=== PATIENT | female | born 1945 | race Caucasian/White ===

== ENCOUNTER 2019-06-27 17:22 | Emergency (ER) | payer OTHER ==
[2019-06-27 17:32] VITALS: TEMP 98.1; BMI 22.3
[2019-06-27] MEDS ORDERED: SODIUM CHLORIDE 0.9% 500 ML INFUS.BAG IV ONE (22:00)
[2019-06-27] MEDS ORDERED: ONDANSETRON 4 MG/2 ML VIAL IVPUSH ONE (22:00)
[2019-06-27] MEDS ORDERED: ONDANSETRON 4 MG/2 ML VIAL ONE (22:07)
--- NOTE | 2019-06-27 22:09 | PDOC ---
History of Present Illness <LuisChelle Jennifer - Last Filed: 06/28/19 01:16> - History of Present Illness Initial Comments: 06/27/19 22:03 73y/o F hx of HTN, triple bypass surgery, [place] (x2), CVA x2 and exertational angina,presents to the ER with nausea and vomiting. She has had 7 episodes of non-bloody/non billious emesis today. She has had 2 admissions in the last month for same complaint. [facility] hyperkalemia and on her second admission at [facility] she had electrolyte imbalances as well and was counseled to stop taking metformn, stay on Januvia and follow up with her PCP. At her PCP's office this morning she was placed on insulin which she has not yet begun to take (of note did not see the doctor, message passed through nurse). She denies any abdominal pain, diarrhea, bloody stools, fevers, chills, flank pain, dysuria, hematuria, leg swelling/edema. She is currently experiencing 4/10 non-radiating chest pain. 06/27/19 22:10 <Hi Coto - Last Filed: 06/30/19 09:35> - General Chief Complaint: Blood Sugar Problem Stated Complaint: VOMITING, BLOOD SUGAR PROBLEM Time Seen by Provider: 06/27/19 21:25 Past History <LuisChelleterrie Rodriguez - Last Filed: 06/28/19 01:16> - Past Medical History COPD: No - Psycho Social/Smoking Cessation Hx Smoking History: Never smoked Information on smoking cessation initiated: No Hx Alcohol Use: No Drug/Substance Use Hx: No <Hi Coto - Last Filed: 06/30/19 09:35> - Past Medical History Allergies/Adverse Reactions: Allergies Allergy/AdvReac Type Severity Reaction Status Date / Time No Known Allergies Allergy Verified 06/27/19 17:31 Home Medications: Ambulatory Orders Aspirin [Aspirin EC] 81 mg PO DAILY 06/27/19 Atorvastatin Ca [Lipitor] 80 mg PO HS 06/27/19 Clopidogrel Bisulfate [Clopidogrel] 75 mg PO BID 06/27/19 Ferrous Gluconate [Iron] 256 mg PO DAILY 06/27/19 Isosorbide Mononitrate [Isosorbide Mononitrate ER] 30 mg PO DAILY 06/27/19 Metformin HCl [Metformin HCl ER] 500 mg PO TID 06/27/19 Metoprolol Tartrate [Lopressor -] 50 mg PO DAILY 06/27/19 Nitroglycerin 0.4 mg SL PRN PRN 06/27/19 Ranolazine [Ranolazine ER] 500 mg PO BID 06/27/19 Sitagliptin Phosphate [Januvia] 100 mg PO DAILY 06/27/19 Review of Systems - Review of Systems Constitutional: No: Chills, Fever HEENTM: No: Eye Pain, Blurred Vision Respiratory: No: Cough, Shortness of Breath Cardiac (ROS): Yes: Chest Pain. No: Edema ABD/GI: No: Abdominal Distended, Diarrhea : No: Burning, Dysuria Integumentary: No: Bruising, Change in Color Neurological: No: Headache, Numbness <Hi Coto - Last Filed: 06/30/19 09:35> *Physical Exam - Vital Signs Last Vital Signs Temp Pulse Resp BP Pulse Ox 98.1 F 55 L 17 138/60 98 06/27/19 17:28 06/27/19 17:28 06/27/19 17:28 06/27/19 17:28 06/27/19 17:28 <Chelle Smith - Last Filed: 06/28/19 01:16> - Vital Signs Last Vital Signs Temp Pulse Resp BP Pulse Ox 98.1 F 55 L 17 138/60 98 06/27/19 17:28 06/27/19 17:28 06/27/19 17:28 06/27/19 17:28 06/27/19 17:28 - Physical Exam Comments: 06/27/19 22:14 GENERAL: Awake, alert, and fully oriented, in no acute distress HEAD: No signs of trauma, normocephalic, atraumatic EYES: PERRLA, EOMI, sclera anicteric, conjunctiva clear ENT: Auricles normal inspection, hearing grossly normal, nares patent, oropharynx clear without exudates. Moist mucosa NECK: Normal ROM, supple, no lymphadenopathy, JVD, or masses LUNGS: No distress, speaks full sentences, inspiratory wheezin/rhonchi on exam. no accessory muscle use. HEART: Regular rate and rhythm, normal S1,louder s2, no murmurs, rubs or gallops , peripheral pulses normal and equal bilaterally. ABDOMEN: Soft, nontender, normoactive bowel sounds. No guarding, no rebound. No masses,no CVA tenderness EXTREMITIES : Normal inspection, Normal range of motion, no edema. No clubbing or cyanosis NEUROLOGICAL: Cranial nerves II through XII grossly intact. Normal speech, normal gait, no focal sensorimotor deficits SKIN: Warm, Dry, normal turgor, no rashes or lesions noted <Hi Coto - Last Filed: 06/30/19 09:35> ED Treatment Course - LABORATORY CBC & Chemistry Diagram: 06/27/19 22:18 06/27/19 22:18 - ADDITIONAL ORDERS Additional order review: Laboratory Results 06/27/19 06/27/19 22:18 21:52 Sodium 130 L Potassium 4.3 Chloride 97 L Carbon Dioxide 26 Anion Gap 8 BUN 14.4 Creatinine 1.1 Est GFR (CKD-EPI)AfAm 57.28 Est GFR (CKD-EPI)NonAf 49.42 POC Glucometer 172 Random Glucose 179 H Calcium 8.4 L Phosphorus 3.1 Magnesium 2.2 Total Bilirubin 0.4 AST 114 H ALT 105 H Alkaline Phosphatase 143 H Creatine Kinase 108 Troponin I 0.09 H Total Protein 7.4 Albumin 3.3 L 06/27/19 06/27/19 22:18 21:52 RBC 3.20 L MCV 83.4 MCHC 31.7 L RDW 14.5 MPV 10.5 Neutrophils % 60.7 Lymphocytes % 25.2 Monocytes % 9.8 Eosinophils % 3.1 Basophils % 1.2 POC Glucometer 172 - Medications Given in the ED: ED Medications Discontinued Medications Generic Name Dose Route Start Last Admin Trade Name Freq PRN Reason Stop Dose Admin Ondansetron HCl 4 mg 06/27/19 22:00 06/27/19 22:22 Zofran Injection IVPUSH 06/27/19 22:01 4 mg NOW ONE Administration Sodium Chloride 1,000 ml 06/27/19 22:00 06/27/19 22:22 Normal Saline - IV 06/27/19 22:01 1,000 ml ONCE ONE Administration <Chelle Smith - Last Filed: 06/28/19 01:16> - LABORATORY CBC & Chemistry Diagram: 06/27/19 22:18 06/27/19 22:18 - ADDITIONAL ORDERS Additional order review: Laboratory Results 06/27/19 21:52 POC Glucometer 172 06/27/19 21:52 POC Glucometer 172 <Hi Coto - Last Filed: 06/30/19 09:35> Medical Decision Making - Medical Decision Making 06/27/19 22:16 73y/o F hx of HTN, triple bypass surgery, IL (x2), CVA x2 and exertational angina,presents to the ER with nausea and vomiting. She has had 7 episodes of non-bloody/non billious emesis today. cbc,cmp, ekg, cardiac profile, mag, phosphorus, meds: 1L NS, zofran 4mg 06/27/19 22:35 EKG: normal sinus rhythm, left atrial enlargement, septal infarct age undetermined, no peaked T waves Trop elevated at 0.09. 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 Repeat trops sent to lab on 3 seperate occasions, but samples were reported by lab to have hemolyzed x3. In light of this pt. decided to leave AMA to follow up with her general road production manager. Importance of doing so was stressed to the patient. 06/30/19 09:30 <Hi Coto - Last Filed: 06/30/19 09:35> *DC/Admit/Observation/Transfer <LuisChelleterrie Rodriguez - Last Filed: 06/28/19 01:16> - Discharge Dispostion Decision to Admit order: No <Hi Coto - Last Filed: 06/30/19 09:35> Diagnosis at time of Disposition: Nausea & vomiting Qualifiers: Vomiting type: unspecified Vomiting Intractability: unspecified Qualified Code( s): R11.2 - Nausea with vomiting, unspecified Chest pain Qualifiers: Chest pain type: unspecified Qualified Code(s): R07.9 - Chest pain, unspecified - Discharge Dispostion Disposition: AGAINST MEDICAL ADVICE Condition at time of disposition: Stable - Patient Instructions Additional Instructions: You were seen in the ED for chest pain You got only one troponin reading done Make sure you follow up with your primary care provider and general road production manager You decided to leave against medical advice. you have signed a form indicating you understand the risk of doing so Return to the ER if symptoms worsen. Discharge <Chelle Smith - Last Filed: 06/28/19 01:16> - Discharge Information Problems reviewed: Yes - Admission No <ChicaHi - Last Filed: 06/30/19 09:35> - Discharge Information Clinical Impression/Diagnosis: Nausea & vomiting Qualifiers: Vomiting type: unspecified Vomiting Intractability: unspecified Qualified Code( s): R11.2 - Nausea with vomiting, unspecified Chest pain Qualifiers: Chest pain type: unspecified Qualified Code(s): R07.9 - Chest pain, unspecified Condition: Stable Disposition: AGAINST MEDICAL ADVICE - Patient Discharge Instructions Additional Instructions: You were seen in the ED for chest pain You got only one troponin reading done Make sure you follow up with your primary care provider and general road production manager You decided to leave against medical advice. you have signed a form indicating you understand the risk of doing so Return to the ER if symptoms worsen.
[2019-06-27 22:25] LABS: BASO % 1.2 % (0-2.0); EOS % 3.1 % (0-4.5); HEMATOCRIT 26.7 % (32.4-45.2); HEMOGLOBIN 8.5 GM/dL (10.7-15.3); LYMPH % 25.2 % (8-40); MCH 26.4 pg (25.7-33.7); MCHC 31.7 g/dl (32.0-36.0); MEAN CELL VOLUME 83.4 fl (80-96); MEAN PLT VOLUME 10.5 fl (7.5-11.1); MONO % 9.8 % (3.8-10.2); NEUT % 60.7 % (42.8-82.8); PLATELET COUNT 179 K/MM3 (134-434); RDW 14.5 % (11.6-15.6); WHITE BLOOD COUNT 10.1 K/mm3 (4.0-10.0)
[2019-06-27 22:50] LABS: MAGNESIUM 2.2 mg/dL (1.8-2.4); PHOSPHOROUS 3.1 mg/dL (2.5-4.9)
[2019-06-27 23:20] LABS: ALBUMIN 3.3 g/dl (3.4-5.0); BILIRUBIN,TOTAL 0.4 mg/dL (0.2-1); BLOOD UREA NITROGEN 14.4 mg/dL (7-18); CALCIUM 8.4 mg/dL (8.5-10.1); CREATININE 1.1 mg/dL (0.55-1.3); POTASSIUM 4.3 mmol/L (3.5-5.1); TOT PROT 7.4 g/dl (6.4-8.2)
--- NOTE | 2019-06-28 01:07 | PDOC ---
Attending Attestation - Resident Resident Name: Hi Coto - ED Attending Attestation I have performed the following: I have examined & evaluated the patient, The case was reviewed & discussed with the resident, I agree w/resident's findings & plan, Exceptions are as noted - HPI HPI: 06/28/19 01:14 thsi 73 yo female was accompanied to the ED by her daughter Her chief complaint nausea and vomiting 3 times this month. She said that her potassium, magnesium and phosphorus earlier in the month needed to be supplemented. History of present illness today she went to see her primary care provider as a walk im and they could not be seen. The daughter is very upset with her mother' s primary care physician at this time and she wants a referral for health and fitness instructor and would like to start seeing a different physician 06/28/19 01:41 - Physicial Exam PE: 06/28/19 01:43 well nourished ,well-developed, petite 73-year-old female in no acute distress hed ncat neck supple lungs cta b/l cvs [id number] abd no rebound, no guarding skin warm and dry neuro alert and conversant and ambulatory - Medical Decision Making 06/28/19 01:45 review of labs : negative first trop ekg no ischemia cbc shows anemia and pt states that she has a long history os anemia, denies dark or tarry stools or chest pain or shortness of breath 06/28/19 01:52 sl elevation LFTs Abdominal US :was read as a normal exam 06/28/19 02:11 Awaiting a second troponin 06/28/19 02:[address] case signed out to Dr Lyons
[2019-06-28 04:56] VITALS: BP 140/62; PULSE 55
--- NOTE | 2019-06-28 10:58 | EKG ---
Test Reason : Blood Pressure : / mmHG Vent. Rate : 062 BPM Atrial Rate : 062 BPM P-R Int : 158 ms QRS Dur : 080 ms QT Int : 458 ms P-R-T Axes : 045 007 066 degrees QTc Int : 464 ms NORMAL SINUS RHYTHM POSSIBLE LEFT ATRIAL ENLARGEMENT SEPTAL INFARCT , AGE UNDETERMINED ABNORMAL ECG NO PREVIOUS ECGS AVAILABLE Confirmed by William Doran ([id number]) on 06/28/2019 10:58:03 AM Referred By: Confirmed By:William Doran
== END 2019-06-28 04:54 | disposition left against medical advice (07) ==
LOC: JER 17:22
PROC: 3E033GC Introduction of Other Therapeutic Substance into Peripheral Vein, Percutaneous Approach (ICD-10-PCS; principal; 2019-06-27)
DX: R07.9 Chest pain, unspecified (principal); R11.2 Nausea with vomiting, unspecified; I25.118 Atherosclerotic heart disease of native coronary artery with other forms of angina pectoris; I10 Essential (primary) hypertension; Z95.1 Presence of aortocoronary bypass graft; I25.2 Old myocardial infarction; E11.9 Type 2 diabetes mellitus without complications; Z79.84 Long term (current) use of oral hypoglycemic drugs; Z86.73 Personal history of transient ischemic attack (TIA), and cerebral infarction without residual deficits; Z86.2 Personal history of diseases of the blood and blood-forming organs and certain disorders involving the immune mechanism; Z79.01 Long term (current) use of anticoagulants; Z79.82 Long term (current) use of aspirin
CPT/HCPCS: 36415; 76705-TC; 80053; 82550; 82962; 83735; 84100; 84484; 85025; 93005; 93010; 99283-25

== ENCOUNTER 2022-07-03 20:06 | Inpatient (IN) | payer OTHER ==
[2022-07-03 21:19] LABS: BASO % 0.4 % (0-2.0); EOS % 0.1 % (0-4.5); HEMATOCRIT 27.3 % (32.4-45.2); HEMOGLOBIN 9.1 GM/dL (10.7-15.3); LYMPH % 3.8 % (8-40); MCH 27.6 pg (25.7-33.7); MCHC 33.4 g/dl (32.0-36.0); MEAN CELL VOLUME 82.8 fl (80-96); MONO % 5.3 % (3.8-10.2); NEUT % 90.4 % (42.8-82.8); PLATELET COUNT 431 10^3/uL (134-434); WHITE BLOOD COUNT 21.6 K/mm3 (4.0-10.0)
[2022-07-03 21:26] LABS: INR 1.34 (0.83-1.09); PROTHROMBIN TIME (PATIENT) 15.4 SEC (9.7-13.0)
[2022-07-03 21:40] LABS: CHLORIDE 88 mmol/L (98-107); SODIUM 124 mmol/L (136-145)
[2022-07-03 21:41] LABS: CALCIUM 8.3 mg/dL (8.5-10.1)
[2022-07-03 21:42] LABS: ALBUMIN 1.9 g/dl (3.4-5.0); ANION GAP 13 MMOL/L (8-16); CO2 23 mmol/L (21-32)
[2022-07-03 21:43] LABS: BLOOD UREA NITROGEN 30.4 mg/dL (7-18); GLUCOSE,RANDOM 208 mg/dL (74-106)
[2022-07-03 21:45] LABS: CREATININE 0.8 mg/dL (0.55-1.3); SGOT/AST 61 U/L (15-37); SGPT/ALT 44 U/L (13-61)
[2022-07-03 21:47] LABS: CHOLESTEROL 68 mg/dL (50-200); TOT PROT 7.3 g/dl (6.4-8.2); TRIGLYCERIDES 43 mg/dL (0-150)
[2022-07-03 21:48] LABS: BILIRUBIN,TOTAL 0.5 mg/dL (0.2-1); LDL CHOLESTEROL (ONLY SJRH) 33 mg/dL (5-100)
[2022-07-03 21:49] LABS: ALK PHOS 129 U/L (45-117)
[2022-07-03 21:50] LABS: HDL CHOLESTEROL 30 mg/dL (40-60)
[2022-07-03] MEDS ORDERED: SODIUM CHLORIDE 0.9% 500 ML INFUS.BAG IV ONE (21:57)
[2022-07-03 22:01] LABS: ANISOCYTOSIS 2+; MACROCYTOSIS 1+; OVALOCYTE 1+; TARGET CELLS 2+; TOXIC GRANULATION 1+
[2022-07-03] MEDS ORDERED: VANCOMYCIN 1 GM in D5W (PRE-DOCKED) 1,000 MG/250 ML IVPB ONE (22:14)
[2022-07-03] MEDS ORDERED: PIPERACILLIN/TAZOB 4.5 GM 4.5 GM in DEXTROSE 5%-WATER 100 ML IVPB ONE (22:14)
[2022-07-04] MEDS ORDERED: PIPERACILLIN/TAZOB 4.5 GM 4.5 GM/100 ML BAG IVPB ONE (00:11)
[2022-07-04] MEDS ORDERED: VANCOMYCIN/WATER FOR INJ (PEG) 1,000 MG/200 ML BAG IVPB ONE (00:12)
[2022-07-04] MEDS ORDERED: ASPIRIN 81 MG CHEWABLE TABLETS PO ONE (00:44)
[2022-07-04] MEDS ORDERED: ASPIRIN 81 MG CHEWABLE TABLETS ONE (01:10)
[2022-07-04 03:51] LABS: EPI CELLS 15 /uL (0-25.1); HYALINE CASTS 0 /uL (0-3.1); URINE APPEARANCE CLEAR; URINE BACTERIA 5 /uL (0-1359); URINE BILIRUBIN NEGATIVE (NEGATIVE); URINE COLOR YELLOW; URINE GLUCOSE (UA) TRACE (NEGATIVE); URINE KETONE NEGATIVE (NEGATIVE); URINE LEUK ESTERASE 1+ (NEGATIVE); URINE NITRITE NEGATIVE (NEGATIVE); URINE PROTEIN 1+ (NEGATIVE); URINE RBC 10 /uL (0-23.9); URINE UROBILINOGEN 0.2 mg/dL (0.2-1.0); URINE WBC 23 /uL (0-25.8)
[2022-07-04] MEDS ORDERED: PIPERACILLIN/TAZOB 3.375 GM 3.375 GM/50 ML BAG IVPB ONE ×2 (04:56→09:40)
[2022-07-04] MEDS: PIPERACILLIN/TAZOB 3.375 GM 3.375 GM in DEXTROSE 5%-WATER - 50 ML IVPB SCH ×4 (05:10→20:38)
[2022-07-04 07:07] LABS: BASO % 0.4 % (0-2.0); EOS % 0.6 % (0-4.5); HEMATOCRIT 25.6 % (32.4-45.2); HEMOGLOBIN 8.3 GM/dL (10.7-15.3); LYMPH % 6.9 % (8-40); MCH 27.4 pg (25.7-33.7); MCHC 32.7 g/dl (32.0-36.0); MEAN CELL VOLUME 83.9 fl (80-96); MEAN PLT VOLUME 8.2 fl (7.5-11.1); MONO % 7.1 % (3.8-10.2); PLATELET COUNT 352 10^3/uL (134-434); RBC 3.04 M/mm3 (3.60-5.2); RDW 19.1 % (11.6-15.6); RETICULOCYTES 1.15 % (0.5-1.5); WHITE BLOOD COUNT 16.3 K/mm3 (4.0-10.0)
[2022-07-04 07:40] LABS: ALBUMIN 1.8 g/dl (3.4-5.0); BLOOD UREA NITROGEN 21.4 mg/dL (7-18); CALCIUM 8.2 mg/dL (8.5-10.1); MAGNESIUM 1.5 mg/dL (1.8-2.4)
[2022-07-04 07:43] LABS: CREATININE 0.6 mg/dL (0.55-1.3); PHOSPHOROUS 2.5 mg/dL (2.5-4.9)
[2022-07-04 07:45] LABS: BILIRUBIN,TOTAL 0.4 mg/dL (0.2-1); TOT PROT 6.4 g/dl (6.4-8.2)
[2022-07-04] MEDS ORDERED: ENOXAPARIN NA (PORCINE) 40 MG/0.4 ML DISP.SYRIN SQ ONE (09:40)
[2022-07-04] MEDS: ENOXAPARIN NA (PORCINE) 40 MG/0.4 ML DISP.SYRIN SQ SCH (09:55)
[2022-07-04] MEDS: INSULIN SLIDING SCALE (NOVOLOG) 1 VIAL SQ SCH ×2 (18:34→22:19)
[2022-07-04] MEDS ORDERED: NITROGLYCERIN SUBLINGUAL 1/150 0.4 MG TAB SL PRN (18:41)
[2022-07-04] MEDS ORDERED: ACETAMINOPHEN 325 MG TABLET (FP) PO PRN (20:07)
[2022-07-04] MEDS ORDERED: ACETAMINOPHEN 1000 MG/100 ML BAG IVPB ONE (20:07)
[2022-07-04] MEDS ORDERED: INSULIN SLIDING SCALE (NOVOLOG) 1 VIAL SQ SCH (22:00)
[2022-07-04] MEDS: METOPROLOL TARTRATE 50 MG TABLET (FP) PO SCH (22:20)
[2022-07-04] MEDS: ATORVASTATIN CA 80 MG TABLET (FP) PO SCH (22:20)
[2022-07-04] MEDS: RANOLAZINE E.R. 500 MG TABLET (FP) PO SCH (22:20)
[2022-07-05] MEDS ORDERED: VANCOMYCIN 500 MG in DEXTROSE 5%-WATER 100 ML IVPB SCH (01:00)
[2022-07-05 02:43] LABS: SODIUM 128 mmol/L (136-145)
[2022-07-05 02:45] LABS: CALCIUM 8.2 mg/dL (8.5-10.1); CO2 23 mmol/L (21-32); GLUCOSE,RANDOM 173 mg/dL (74-106)
[2022-07-05 02:47] LABS: CREATININE 0.7 mg/dL (0.55-1.3)
[2022-07-05 02:52] LABS: ANION GAP 12 MMOL/L (8-16); CHLORIDE 92 mmol/L (98-107)
[2022-07-05] MEDS ORDERED: SODIUM CHLORIDE 1,000 ML IV SCH (03:00)
[2022-07-05] MEDS: PIPERACILLIN/TAZOB 3.375 GM 3.375 GM in DEXTROSE 5%-WATER - 50 ML IVPB SCH ×4 (03:15→22:47)
[2022-07-05] MEDS: INSULIN SLIDING SCALE (NOVOLOG) 1 VIAL SQ SCH ×4 (06:20→22:47)
[2022-07-05] MEDS: MEMANTINE HCL 10 MG TABLET (FP) PO SCH (09:40)
[2022-07-05] MEDS: PANTOPRAZOLE 40 MG TABLET PO SCH (09:41)
[2022-07-05] MEDS: ISOSORBIDE MONONITRATE 60 MG TAB.SR.24H (FP) PO SCH (09:41)
[2022-07-05] MEDS: ASPIRIN COATED 81 MG TABLET.EC PO SCH (09:41)
[2022-07-05] MEDS: RANOLAZINE E.R. 500 MG TABLET (FP) PO SCH ×2 (09:41→22:47)
[2022-07-05] MEDS: ENOXAPARIN NA (PORCINE) 40 MG/0.4 ML DISP.SYRIN SQ SCH (09:41)
[2022-07-05] MEDS: METOPROLOL TARTRATE 50 MG TABLET (FP) PO SCH ×2 (10:00→22:47)
[2022-07-05] MEDS: ATORVASTATIN CA 80 MG TABLET (FP) PO SCH (22:47)
[2022-07-06] MEDS ORDERED: VANCOMYCIN 500 MG in DEXTROSE 5%-WATER 100 ML IVPB SCH (01:00)
[2022-07-06] MEDS: PIPERACILLIN/TAZOB 3.375 GM 3.375 GM in DEXTROSE 5%-WATER - 50 ML IVPB SCH ×4 (03:17→22:08)
[2022-07-06] MEDS: INSULIN SLIDING SCALE (NOVOLOG) 1 VIAL SQ SCH ×4 (06:21→22:07)
[2022-07-06 07:29] LABS: BASO % 0.7 % (0-2.0); EOS % 1.7 % (0-4.5); HEMATOCRIT 24.4 % (32.4-45.2); HEMOGLOBIN 8.3 GM/dL (10.7-15.3); LYMPH % 14.2 % (8-40); MCH 28.2 pg (25.7-33.7); MCHC 33.9 g/dl (32.0-36.0); MEAN CELL VOLUME 83.1 fl (80-96); MONO % 10.7 % (3.8-10.2); NEUT % 72.7 % (42.8-82.8); PLATELET COUNT 320 10^3/uL (134-434); RBC 2.94 M/mm3 (3.60-5.2); RDW 18.4 % (11.6-15.6); WHITE BLOOD COUNT 8.6 K/mm3 (4.0-10.0)
[2022-07-06] MEDS ORDERED: PIPERACILLIN/TAZOBACTAM 3.375 GM VIAL IVPB ONE ×2 (07:56→14:26)
[2022-07-06 08:00] LABS: BLOOD UREA NITROGEN 6.7 mg/dL (7-18); CALCIUM 7.8 mg/dL (8.5-10.1)
[2022-07-06 08:03] LABS: CREATININE 0.7 mg/dL (0.55-1.3)
[2022-07-06] MEDS: PANTOPRAZOLE 40 MG TABLET PO SCH (10:18)
[2022-07-06] MEDS: ISOSORBIDE MONONITRATE 60 MG TAB.SR.24H (FP) PO SCH (10:18)
[2022-07-06] MEDS: ASPIRIN COATED 81 MG TABLET.EC PO SCH (10:18)
[2022-07-06] MEDS: MEMANTINE HCL 10 MG TABLET (FP) PO SCH (10:18)
[2022-07-06] MEDS: RANOLAZINE E.R. 500 MG TABLET (FP) PO SCH ×2 (10:18→22:07)
[2022-07-06] MEDS: METOPROLOL TARTRATE 50 MG TABLET (FP) PO SCH ×2 (10:18→22:07)
[2022-07-06] MEDS: SODIUM CHLORIDE 1,000 ML IV SCH (10:56)
[2022-07-06] MEDS: ENOXAPARIN NA (PORCINE) 40 MG/0.4 ML DISP.SYRIN SQ SCH (11:05)
[2022-07-06] MEDS: ATORVASTATIN CA 80 MG TABLET (FP) PO SCH (22:07)
[2022-07-07] MEDS: PIPERACILLIN/TAZOB 3.375 GM 3.375 GM in DEXTROSE 5%-WATER - 50 ML IVPB SCH ×4 (03:37→21:25)
[2022-07-07] MEDS: INSULIN SLIDING SCALE (NOVOLOG) 1 VIAL SQ SCH ×4 (06:22→21:31)
[2022-07-07 07:44] LABS: BLOOD UREA NITROGEN 4.8 mg/dL (7-18); CALCIUM 7.8 mg/dL (8.5-10.1)
[2022-07-07 07:47] LABS: CREATININE 0.6 mg/dL (0.55-1.3)
[2022-07-07] MEDS: ASPIRIN COATED 81 MG TABLET.EC PO SCH (09:35)
[2022-07-07] MEDS: ISOSORBIDE MONONITRATE 60 MG TAB.SR.24H (FP) PO SCH (09:35)
[2022-07-07] MEDS: MEMANTINE HCL 10 MG TABLET (FP) PO SCH (09:35)
[2022-07-07] MEDS: PANTOPRAZOLE 40 MG TABLET PO SCH (09:35)
[2022-07-07] MEDS: ENOXAPARIN NA (PORCINE) 40 MG/0.4 ML DISP.SYRIN SQ SCH (09:35)
[2022-07-07] MEDS: METOPROLOL TARTRATE 50 MG TABLET (FP) PO SCH ×2 (09:35→21:25)
[2022-07-07] MEDS: RANOLAZINE E.R. 500 MG TABLET (FP) PO SCH ×2 (09:35→21:26)
[2022-07-07] MEDS: SODIUM CHLORIDE 1,000 ML IV SCH ×2 (09:36→10:45)
[2022-07-07] MEDS ORDERED: POTASSIUM CHLORIDE ORAL LIQUID 20 MEQ/15 ML PO ONE (12:14)
[2022-07-07 16:23] LABS: HEMATOCRIT 25.4 % (32.4-45.2); HEMOGLOBIN 8.5 GM/dL (10.7-15.3); MCH 28.1 pg (25.7-33.7); MCHC 33.5 g/dl (32.0-36.0); MEAN CELL VOLUME 83.9 fl (80-96); MEAN PLT VOLUME 7.5 fl (7.5-11.1); PLATELET COUNT 338 10^3/uL (134-434); RBC 3.03 M/mm3 (3.60-5.2); RDW 18.2 % (11.6-15.6); WHITE BLOOD COUNT 6.1 K/mm3 (4.0-10.0)
[2022-07-07] MEDS: ATORVASTATIN CA 80 MG TABLET (FP) PO SCH (21:25)
[2022-07-08] MEDS: INSULIN SLIDING SCALE (NOVOLOG) 1 VIAL SQ SCH ×4 (06:17→21:54)
[2022-07-08] MEDS ORDERED: PIPERACILLIN/TAZOB 3.375 GM 3.375 GM in DEXTROSE 5%-WATER - 50 ML IVPB SCH (06:30)
[2022-07-08 07:29] LABS: HEMATOCRIT 27.4 % (32.4-45.2); HEMOGLOBIN 8.9 GM/dL (10.7-15.3); MCH 27.1 pg (25.7-33.7); MCHC 32.5 g/dl (32.0-36.0); MEAN CELL VOLUME 83.3 fl (80-96); MEAN PLT VOLUME 8.4 fl (7.5-11.1); PLATELET COUNT 359 10^3/uL (134-434); RBC 3.29 M/mm3 (3.60-5.2); RDW 18.4 % (11.6-15.6); WHITE BLOOD COUNT 7.9 K/mm3 (4.0-10.0)
[2022-07-08 07:47] LABS: ALBUMIN 1.7 g/dl (3.4-5.0); BLOOD UREA NITROGEN 4.4 mg/dL (7-18)
[2022-07-08 07:48] LABS: CALCIUM 8.2 mg/dL (8.5-10.1)
[2022-07-08 07:49] LABS: CREATININE 0.6 mg/dL (0.55-1.3); MAGNESIUM 1.4 mg/dL (1.8-2.4); PHOSPHOROUS 2.5 mg/dL (2.5-4.9)
[2022-07-08 07:50] LABS: BILIRUBIN,TOTAL 0.3 mg/dL (0.2-1); TOT PROT 6.2 g/dl (6.4-8.2)
[2022-07-08] MEDS: PIPERACILLIN/TAZOB 3.375 GM 3.375 GM in DEXTROSE 5%-WATER - 50 ML IVPB SCH ×3 (08:05→21:36)
[2022-07-08] MEDS: ENOXAPARIN NA (PORCINE) 40 MG/0.4 ML DISP.SYRIN SQ SCH (09:48)
[2022-07-08] MEDS: METOPROLOL TARTRATE 50 MG TABLET (FP) PO SCH ×2 (09:48→21:36)
[2022-07-08] MEDS: PANTOPRAZOLE 40 MG TABLET PO SCH (09:48)
[2022-07-08] MEDS: ISOSORBIDE MONONITRATE 60 MG TAB.SR.24H (FP) PO SCH (09:48)
[2022-07-08] MEDS: RANOLAZINE E.R. 500 MG TABLET (FP) PO SCH ×2 (09:48→21:36)
[2022-07-08] MEDS: MEMANTINE HCL 10 MG TABLET (FP) PO SCH (09:48)
[2022-07-08] MEDS: ASPIRIN COATED 81 MG TABLET.EC PO SCH (09:48)
[2022-07-08] MEDS: SODIUM CHLORIDE 1,000 ML IV SCH (09:49)
[2022-07-08] MEDS ORDERED: MAGNESIUM SULF 50% (8.12 MEQ/2 ML-1 GM VIAL) IVPB ONE (14:32)
[2022-07-08] MEDS: ATORVASTATIN CA 80 MG TABLET (FP) PO SCH (21:36)
[2022-07-09] MEDS: PIPERACILLIN/TAZOB 3.375 GM 3.375 GM in DEXTROSE 5%-WATER - 50 ML IVPB SCH ×4 (03:11→21:01)
[2022-07-09] MEDS: INSULIN SLIDING SCALE (NOVOLOG) 1 VIAL SQ SCH ×4 (06:55→21:04)
[2022-07-09 08:07] LABS: HEMATOCRIT 27.4 % (32.4-45.2); MCH 27.1 pg (25.7-33.7); MCHC 32.8 g/dl (32.0-36.0); MEAN CELL VOLUME 82.5 fl (80-96); MEAN PLT VOLUME 8.2 fl (7.5-11.1); PLATELET COUNT 401 10^3/uL (134-434); RBC 3.32 M/mm3 (3.60-5.2); RDW 18.8 % (11.6-15.6); WHITE BLOOD COUNT 8.2 K/mm3 (4.0-10.0)
[2022-07-09 08:32] LABS: ALBUMIN 1.8 g/dl (3.4-5.0); BLOOD UREA NITROGEN 6.5 mg/dL (7-18); CALCIUM 8.3 mg/dL (8.5-10.1); MAGNESIUM 2.1 mg/dL (1.8-2.4)
[2022-07-09 08:35] LABS: CREATININE 0.8 mg/dL (0.55-1.3); PHOSPHOROUS 2.3 mg/dL (2.5-4.9)
[2022-07-09 08:36] LABS: BILIRUBIN,TOTAL 0.4 mg/dL (0.2-1); TOT PROT 6.5 g/dl (6.4-8.2)
[2022-07-09] MEDS: ISOSORBIDE MONONITRATE 60 MG TAB.SR.24H (FP) PO SCH (09:57)
[2022-07-09] MEDS: ENOXAPARIN NA (PORCINE) 40 MG/0.4 ML DISP.SYRIN SQ SCH (09:57)
[2022-07-09] MEDS: PANTOPRAZOLE 40 MG TABLET PO SCH (09:57)
[2022-07-09] MEDS: MEMANTINE HCL 10 MG TABLET (FP) PO SCH (09:57)
[2022-07-09] MEDS: RANOLAZINE E.R. 500 MG TABLET (FP) PO SCH ×2 (09:57→21:02)
[2022-07-09] MEDS: METOPROLOL TARTRATE 50 MG TABLET (FP) PO SCH ×2 (09:58→21:01)
[2022-07-09] MEDS: ASPIRIN COATED 81 MG TABLET.EC PO SCH (09:58)
[2022-07-09] MEDS ORDERED: NAPH,MB-DB/K PH,MBDB POWDER PACKET PO ONE (10:36)
[2022-07-09] MEDS ORDERED: NAPH,MB-DB/K PH,MBDB POWDER PACKET PO SCH ×2 (10:56→22:00)
[2022-07-09] MEDS ORDERED: ACETAMINOPHEN 325 MG TABLET (FP) PO PRN (20:03)
[2022-07-09] MEDS ORDERED: NITROGLYCERIN SUBLINGUAL 1/150 0.4 MG TAB SL PRN (20:03)
[2022-07-09] MEDS: ATORVASTATIN CA 80 MG TABLET (FP) PO SCH (21:02)
[2022-07-10] MEDS: PIPERACILLIN/TAZOB 3.375 GM 3.375 GM in DEXTROSE 5%-WATER - 50 ML IVPB SCH ×4 (03:14→21:18)
[2022-07-10] MEDS: INSULIN SLIDING SCALE (NOVOLOG) 1 VIAL SQ SCH ×4 (06:12→22:16)
[2022-07-10] MEDS: RANOLAZINE E.R. 500 MG TABLET (FP) PO SCH ×2 (09:03→21:18)
[2022-07-10] MEDS: MEMANTINE HCL 10 MG TABLET (FP) PO SCH (09:03)
[2022-07-10] MEDS: PANTOPRAZOLE 40 MG TABLET PO SCH (09:03)
[2022-07-10] MEDS: ASPIRIN COATED 81 MG TABLET.EC PO SCH (09:03)
[2022-07-10] MEDS: ENOXAPARIN NA (PORCINE) 40 MG/0.4 ML DISP.SYRIN SQ SCH (09:14)
[2022-07-10] MEDS: ISOSORBIDE MONONITRATE 60 MG TAB.SR.24H (FP) PO SCH (09:21)
[2022-07-10] MEDS: METOPROLOL TARTRATE 50 MG TABLET (FP) PO SCH ×2 (09:22→21:18)
[2022-07-10 10:21] LABS: HEMATOCRIT 25.4 % (32.4-45.2); HEMOGLOBIN 8.6 GM/dL (10.7-15.3); MCHC 33.8 g/dl (32.0-36.0); MEAN CELL VOLUME 83.1 fl (80-96); MEAN PLT VOLUME 8.1 fl (7.5-11.1); PLATELET COUNT 398 10^3/uL (134-434); RBC 3.06 M/mm3 (3.60-5.2); RDW 18.9 % (11.6-15.6); WHITE BLOOD COUNT 8.3 K/mm3 (4.0-10.0)
[2022-07-10 10:47] LABS: ALBUMIN 1.8 g/dl (3.4-5.0); CALCIUM 8.2 mg/dL (8.5-10.1)
[2022-07-10 10:48] LABS: BLOOD UREA NITROGEN 7.3 mg/dL (7-18); MAGNESIUM 1.8 mg/dL (1.8-2.4)
[2022-07-10 10:50] LABS: CREATININE 0.8 mg/dL (0.55-1.3)
[2022-07-10 10:51] LABS: BILIRUBIN,TOTAL 0.2 mg/dL (0.2-1); PHOSPHOROUS 2.4 mg/dL (2.5-4.9); TOT PROT 6.3 g/dl (6.4-8.2)
[2022-07-10 16:15] VITALS: BMI 15.4
[2022-07-10] MEDS: ATORVASTATIN CA 80 MG TABLET (FP) PO SCH (21:18)
[2022-07-11] MEDS: PIPERACILLIN/TAZOB 3.375 GM 3.375 GM in DEXTROSE 5%-WATER - 50 ML IVPB SCH ×4 (02:39→21:12)
[2022-07-11] MEDS: INSULIN SLIDING SCALE (NOVOLOG) 1 VIAL SQ SCH ×4 (06:25→21:49)
[2022-07-11 09:38] LABS: BASO % 1.4 % (0-2.0); EOS % 3.6 % (0-4.5); HEMATOCRIT 28.7 % (32.4-45.2); HEMOGLOBIN 9.2 GM/dL (10.7-15.3); LYMPH % 14.7 % (8-40); MCH 26.9 pg (25.7-33.7); MCHC 31.9 g/dl (32.0-36.0); MEAN CELL VOLUME 84.3 fl (80-96); MEAN PLT VOLUME 8.7 fl (7.5-11.1); MONO % 7.6 % (3.8-10.2); NEUT % 72.7 % (42.8-82.8); PLATELET COUNT 476 10^3/uL (134-434); RBC 3.41 M/mm3 (3.60-5.2); RDW 18.8 % (11.6-15.6); WHITE BLOOD COUNT 9.3 K/mm3 (4.0-10.0)
[2022-07-11] MEDS: MEMANTINE HCL 10 MG TABLET (FP) PO SCH (10:12)
[2022-07-11] MEDS: NAPH,MB-DB/K PH,MBDB POWDER PACKET PO SCH (10:12)
[2022-07-11] MEDS: ASPIRIN COATED 81 MG TABLET.EC PO SCH (10:12)
[2022-07-11] MEDS: RANOLAZINE E.R. 500 MG TABLET (FP) PO SCH ×2 (10:12→21:49)
[2022-07-11] MEDS: ENOXAPARIN NA (PORCINE) 40 MG/0.4 ML DISP.SYRIN SQ SCH (10:12)
[2022-07-11] MEDS: ISOSORBIDE MONONITRATE 60 MG TAB.SR.24H (FP) PO SCH (10:12)
[2022-07-11] MEDS: PANTOPRAZOLE 40 MG TABLET PO SCH (10:12)
[2022-07-11] MEDS: METOPROLOL TARTRATE 50 MG TABLET (FP) PO SCH ×2 (10:12→21:49)
[2022-07-11 10:13] LABS: ALBUMIN 1.9 g/dl (3.4-5.0); BLOOD UREA NITROGEN 8.5 mg/dL (7-18); CALCIUM 8.5 mg/dL (8.5-10.1)
[2022-07-11 10:16] LABS: CREATININE 0.8 mg/dL (0.55-1.3); PHOSPHOROUS 2.4 mg/dL (2.5-4.9)
[2022-07-11 10:17] LABS: BILIRUBIN,TOTAL 0.3 mg/dL (0.2-1)
[2022-07-11] MEDS: SODIUM CHLORIDE 1,000 ML IV SCH (12:47)
[2022-07-11] MEDS ORDERED: INSULIN (LEVEMIR) 100 UNITS/ML UNITS SQ ONE (14:39)
[2022-07-11 15:07] VITALS: RESP 18
[2022-07-11] MEDS: ATORVASTATIN CA 80 MG TABLET (FP) PO SCH (21:48)
[2022-07-12] MEDS: PIPERACILLIN/TAZOB 3.375 GM 3.375 GM in DEXTROSE 5%-WATER - 50 ML IVPB SCH ×3 (02:10→14:25)
[2022-07-12] MEDS: INSULIN SLIDING SCALE (NOVOLOG) 1 VIAL SQ SCH ×3 (06:55→16:50)
[2022-07-12] MEDS: ENOXAPARIN NA (PORCINE) 40 MG/0.4 ML DISP.SYRIN SQ SCH (09:26)
[2022-07-12] MEDS: PANTOPRAZOLE 40 MG TABLET PO SCH (09:27)
[2022-07-12] MEDS: MEMANTINE HCL 10 MG TABLET (FP) PO SCH (09:27)
[2022-07-12] MEDS: METOPROLOL TARTRATE 50 MG TABLET (FP) PO SCH (09:27)
[2022-07-12] MEDS: RANOLAZINE E.R. 500 MG TABLET (FP) PO SCH (09:27)
[2022-07-12] MEDS: NAPH,MB-DB/K PH,MBDB POWDER PACKET PO SCH (09:27)
[2022-07-12] MEDS: ASPIRIN COATED 81 MG TABLET.EC PO SCH (09:27)
[2022-07-12] MEDS: ISOSORBIDE MONONITRATE 60 MG TAB.SR.24H (FP) PO SCH (09:27)
[2022-07-12] MEDS: SODIUM CHLORIDE 1,000 ML IV SCH (11:41)
[2022-07-12 14:30] VITALS: BP 115/57; PULSE 58; TEMP 98.3
== END 2022-07-12 18:18 | disposition home or self-care (01) | DRG 177 ==
LOC: JER 20:06 → JERBED 07-04 01:55 → J4W 07-04 14:44 → J5S 07-09 20:02
PROVIDERS: ADMIT Internal Medicine; ATTEND Internal Medicine
DX: J69.0 Pneumonitis due to inhalation of food and vomit (principal); G93.41 Metabolic encephalopathy; I21.A1 Myocardial infarction type 2; E87.1 Hypo-osmolality and hyponatremia; N39.0 Urinary tract infection, site not specified; I25.10 Atherosclerotic heart disease of native coronary artery without angina pectoris; Z95.1 Presence of aortocoronary bypass graft; F01.50 Vascular dementia, unspecified severity, without behavioral disturbance, psychotic disturbance, mood disturbance, and anxiety; E78.5 Hyperlipidemia, unspecified; I25.2 Old myocardial infarction; I69.392 Facial weakness following cerebral infarction; E88.09 Other disorders of plasma-protein metabolism, not elsewhere classified; E11.65 Type 2 diabetes mellitus with hyperglycemia; I10 Essential (primary) hypertension; R79.89 Other specified abnormal findings of blood chemistry; Z79.84 Long term (current) use of oral hypoglycemic drugs; D63.8 Anemia in other chronic diseases classified elsewhere; E87.6 Hypokalemia; E11.51 Type 2 diabetes mellitus with diabetic peripheral angiopathy without gangrene; I87.8 Other specified disorders of veins; I12.9 Hypertensive chronic kidney disease with stage 1 through stage 4 chronic kidney disease, or unspecified chronic kidney disease; E11.22 Type 2 diabetes mellitus with diabetic chronic kidney disease; N18.9 Chronic kidney disease, unspecified
CPT/HCPCS: 36415; 70450-TC; 70551-TC; 71045-TC-FY; 71275-TC; 74230-TC-FY; 80048; 80053; 80061; 81003; 82533; 82550; 82728; 82962; 83036; 83540; 83550; 83735; 84100; 84132; 84443; 84466; 84484; 85025; 85027; 85045; 85610; 85730; 86704; 86709; 86803; 86850; 86900; 86901; 87040; 87086; 87340; 87517; 87899; 92611-GN; 93005; 93010; 93306-TC; 93880-TC; 97116-GP; 97161-GP; 99285-25; C9803-CS; Q9967; U0003; U0005

== ENCOUNTER 2022-09-04 02:46 | Inpatient (IN) | payer OTHER ==
[2022-09-04] MEDS ORDERED: DEXTROSE 50%-WATER - 25 GM/50 ML VIAL IVPUSH ONE ×3 (02:49→22:30)
[2022-09-04] MEDS ORDERED: DEXTROSE 50%-WATER 25 GM/50 ML DISP.SYRIN ONE ×2 (02:52→22:31)
[2022-09-04 02:58] VITALS: BMI 24.0
[2022-09-04] MEDS ORDERED: PIPERACILLIN/TAZOB 4.5 GM 4.5 GM in DEXTROSE 5%-WATER 100 ML IVPB ONE (03:06)
[2022-09-04] MEDS ORDERED: VANCOMYCIN 1 GM in D5W (PRE-DOCKED) 1,000 MG/250 ML IVPB ONE (03:06)
[2022-09-04] MEDS ORDERED: PIPERACILLIN/TAZOB 4.5 GM 4.5 GM/100 ML BAG IVPB ONE (03:51)
[2022-09-04] MEDS ORDERED: VANCOMYCIN/WATER FOR INJ (PEG) 1,000 MG/200 ML BAG IVPB ONE (03:51)
[2022-09-04 04:16] LABS: VENOUS BASE EXCESS 2.3 mmol/L (-2-2); VENOUS O2 SATURATION 65.2 % (70-80); VENOUS PCO2 65.3 mmHg (38-52); VENOUS PH 7.275 (7.310-7.410)
[2022-09-04 04:24] LABS: HEMATOCRIT 26.2 % (32.4-45.2); HEMOGLOBIN 8.4 GM/dL (10.7-15.3); MCH 28.9 pg (25.7-33.7); MCHC 32.3 g/dl (32.0-36.0); MEAN CELL VOLUME 89.5 fl (80-96); MEAN PLT VOLUME 10.2 fl (7.5-11.1); PLATELET COUNT 291 10^3/uL (134-434); RBC 2.93 M/mm3 (3.60-5.2); RDW 18.3 % (11.6-15.6); WHITE BLOOD COUNT 9.5 K/mm3 (4.0-10.0)
[2022-09-04 04:26] LABS: INR 1.46 (0.83-1.09); PROTHROMBIN TIME (PATIENT) 16.9 SEC (9.7-13.0)
[2022-09-04 04:28] LABS: ACTIVATED PTT 41.3 SECONDS (25.2-36.5)
[2022-09-04 04:35] LABS: ALBUMIN 0.8 g/dl (3.4-5.0); BLOOD UREA NITROGEN 24.9 mg/dL (7-18)
[2022-09-04 04:38] LABS: CREATININE 1.4 mg/dL (0.55-1.3)
[2022-09-04 04:40] LABS: BILIRUBIN,TOTAL 0.2 mg/dL (0.2-1); LACTIC ACID 5.7 mmol/L (0.4-2.0); TOT PROT 4.6 g/dl (6.4-8.2)
[2022-09-04] MEDS: NOREPINEPHRINE 0.9 % NACL 8 MG/250 ML BAG IVPB SCH (06:17)
[2022-09-04 09:20] LABS: ANISOCYTOSIS 0; MACROCYTOSIS 0
[2022-09-04 10:31] LABS: EPI CELLS 21 /uL (0-25.1); HYALINE CASTS 3 /uL (0-3.1); URINE APPEARANCE CLOUDY; URINE BACTERIA 72 /uL (0-1359); URINE BILIRUBIN NEGATIVE (NEGATIVE); URINE COLOR YELLOW; URINE GLUCOSE (UA) NEGATIVE (NEGATIVE); URINE KETONE TRACE (NEGATIVE); URINE LEUK ESTERASE 2+ (NEGATIVE); URINE NITRITE NEGATIVE (NEGATIVE); URINE PROTEIN 1+ (NEGATIVE); URINE RBC 53 /uL (0-23.9); URINE UROBILINOGEN 0.2 mg/dL (0.2-1.0); URINE WBC 353 /uL (0-25.8)
[2022-09-04 10:33] LABS: YEAST NEGATIVE (NEGATIVE)
[2022-09-04] MEDS ORDERED: SODIUM CHLORIDE 1,000 ML IV STA ×2 (13:48→19:01)
[2022-09-04] MEDS ORDERED: SODIUM CHLORIDE 1,000 ML IV SCH (14:00)
[2022-09-04] MEDS: HEPARIN NA (PORCINE) 5,000 UNITS/ML 1ML VIAL SQ SCH ×2 (14:14→22:13)
[2022-09-04] MEDS ORDERED: HEPARIN NA (PORCINE) 5,000 UNITS/ML 1ML VIAL ONE (14:16)
[2022-09-04] MEDS ORDERED: ACETAMINOPHEN 1000 MG/100 ML BAG IVPB PRN (14:35)
[2022-09-04] MEDS ORDERED: PIPERACILLIN/TAZOB 3.375 GM 3.375 GM in DEXTROSE 5%-WATER - 50 ML IVPB SCH (14:45)
[2022-09-04] MEDS: PIPERACILLIN/TAZOB 3.375 GM 3.375 GM in DEXTROSE 5%-WATER - 50 ML IVPB SCH (17:32)
[2022-09-04] MEDS ORDERED: PIPERACILLIN/TAZOB 3.375 GM 3.375 GM/50 ML BAG IVPB ONE (17:43)
[2022-09-04] MEDS ORDERED: MUPIROCIN 2% TOPICAL OINTMENT FOR DECOLONIZATION NS SCH (22:00)
[2022-09-04] MEDS ORDERED: VASOPRESSIN 40 UNITS/100 ML BAG IV SCH (22:00)
[2022-09-04] MEDS ORDERED: CHLORHEXIDINE GLUCONATE 4% CLEANSER FOR DECOLONIZATION TP SCH (22:00)
[2022-09-04] MEDS ORDERED: VASOPRESSIN 20 UNITS/ML VIAL IV ONE (22:15)
[2022-09-04] MEDS ORDERED: DEXTROSE 50%-WATER 25 GM/50 ML DISP.SYRIN IVPUSH ONE (22:30)
[2022-09-04] MEDS ORDERED: DEXTROSE 5%-WATER - 1,000 ML IV SCH (22:45)
[2022-09-04 22:57] LABS: RETICULOCYTES 0.68 % (0.5-1.5)
[2022-09-05] MEDS: PIPERACILLIN/TAZOB 3.375 GM 3.375 GM in DEXTROSE 5%-WATER - 50 ML IVPB SCH (02:35)
[2022-09-05 04:17] VITALS: RESP 24
[2022-09-05] MEDS: HEPARIN NA (PORCINE) 5,000 UNITS/ML 1ML VIAL SQ SCH (07:12)
[2022-09-05] MEDS: NOREPINEPHRINE 0.9 % NACL 8 MG/250 ML BAG IVPB SCH (07:29)
[2022-09-05 07:30] VITALS: BP 95/35
[2022-09-05 07:36] VITALS: TEMP 97.5
[2022-09-05 08:21] LABS: CHLORIDE 99 mmol/L (98-107); SODIUM 139 mmol/L (136-145)
[2022-09-05 08:26] LABS: LACTIC ACID 9.8 mmol/L (0.4-2.0)
[2022-09-05 08:31] LABS: CALCIUM 8.8 mg/dL (8.5-10.1)
[2022-09-05 08:32] LABS: ALBUMIN 0.7 g/dl (3.4-5.0); ANION GAP 14 MMOL/L (8-16); BLOOD UREA NITROGEN 34.3 mg/dL (7-18); CO2 26 mmol/L (21-32); MAGNESIUM 2.2 mg/dL (1.8-2.4)
[2022-09-05 08:35] LABS: CREATININE 1.6 mg/dL (0.55-1.3); PHOSPHOROUS 6.1 mg/dL (2.5-4.9); SGOT/AST 36 U/L (15-37); SGPT/ALT 18 U/L (13-61)
[2022-09-05 08:36] LABS: BILIRUBIN,TOTAL 0.5 mg/dL (0.2-1); TOT PROT 4.6 g/dl (6.4-8.2)
[2022-09-05 08:38] LABS: ALK PHOS 103 U/L (45-117)
[2022-09-05 08:43] LABS: GLUCOSE,RANDOM 43 mg/dL (74-106)
[2022-09-05] MEDS ORDERED: DEXTROSE 50%-WATER - 25 GM/50 ML VIAL IVPUSH ONE (08:47)
[2022-09-05] MEDS ORDERED: DEXTROSE 50%-WATER 25 GM/50 ML DISP.SYRIN ONE (08:49)
[2022-09-05] MEDS ORDERED: ALBUMIN HUMAN 25% 100 ML VIAL IV SCH (09:00)
[2022-09-05] MEDS ORDERED: HYDROCORTISONE SOD SUCCINATE 100 MG/2 ML VIAL IVPB SCH (09:00)
[2022-09-05] MEDS ORDERED: SODIUM CHLORIDE 0.9% 500 ML INFUS.BAG IV ONE (09:03)
[2022-09-05] MEDS ORDERED: DEXTROSE 5%-WATER - 1,000 ML IV SCH (09:10)
[2022-09-05 09:12] VITALS: PULSE 109
[2022-09-05 09:42] LABS: BASO % 0.2 % (0-2.0); EOS % 0.3 % (0-4.5); HEMATOCRIT 17.3 % (32.4-45.2); LYMPH % 15.8 % (8-40); MCH 29.9 pg (25.7-33.7); MCHC 30.6 g/dl (32.0-36.0); MEAN PLT VOLUME 9.2 fl (7.5-11.1); MONO % 1.5 % (3.8-10.2); NEUT % 82.2 % (42.8-82.8); PLATELET COUNT 131 10^3/uL (134-434); RBC 1.77 M/mm3 (3.60-5.2); RDW 18.5 % (11.6-15.6); WHITE BLOOD COUNT 9.8 K/mm3 (4.0-10.0)
[2022-09-05 09:44] LABS: HEMOGLOBIN 5.3 GM/dL (10.7-15.3)
[2022-09-05] MEDS ORDERED: FLUDROCORTISONE ACETATE 0.1 MG TABLET (FP) PO SCH (10:00)
[2022-09-05] MEDS ORDERED: VANCOMYCIN 1 GM in D5W (PRE-DOCKED) 1,000 MG/250 ML IVPB SCH (10:00)
[2022-09-05] MEDS ORDERED: VANCOMYCIN 1 GM/200 ML PREMIX BAG (RESTRICTED TO ID ONLY) IVPB SCH (10:00)
[2022-09-05] MEDS ORDERED: PNEUMOC 20-VAL CONJ-DIP CRM/PF 0.5 ML SYRINGE IM ONE (10:00)
[2022-09-05 10:25] LABS: CHLORIDE 98 mmol/L (98-107); SODIUM 136 mmol/L (136-145)
[2022-09-05 10:30] LABS: CALCIUM 8.5 mg/dL (8.5-10.1)
[2022-09-05 10:31] LABS: ALBUMIN 0.6 g/dl (3.4-5.0); BLOOD UREA NITROGEN 32.7 mg/dL (7-18); CO2 26 mmol/L (21-32); GLUCOSE,RANDOM 247 mg/dL (74-106)
[2022-09-05 10:34] LABS: CREATININE 1.6 mg/dL (0.55-1.3); SGOT/AST 40 U/L (15-37); SGPT/ALT 16 U/L (13-61)
[2022-09-05 10:35] LABS: BILIRUBIN,TOTAL 0.5 mg/dL (0.2-1)
[2022-09-05 10:36] LABS: ALK PHOS 87 U/L (45-117); ANION GAP 11 MMOL/L (8-16); TOT PROT 3.9 g/dl (6.4-8.2)
[2022-09-05] MEDS ORDERED: INSULIN SLIDING SCALE (NOVOLOG) 1 VIAL SQ SCH (11:00)
== END 2022-09-05 09:20 | disposition expired | DRG 871 ==
LOC: JER 02:46 → JERBED 05:01 → JICU 20:07
PROVIDERS: ADMIT Internal Medicine Pulmonary Disease; ATTEND Internal Medicine Pulmonary Disease
PROC: 05HM33Z Insertion of Infusion Device into Right Internal Jugular Vein, Percutaneous Approach (ICD-10-PCS; principal; 2022-09-04)
DX: A41.9 Sepsis, unspecified organism (principal); J69.0 Pneumonitis due to inhalation of food and vomit; R65.21 Severe sepsis with septic shock; J96.01 Acute respiratory failure with hypoxia; E87.20 Acidosis, unspecified; R64 Cachexia; E11.9 Type 2 diabetes mellitus without complications; I10 Essential (primary) hypertension; E78.5 Hyperlipidemia, unspecified; I25.10 Atherosclerotic heart disease of native coronary artery without angina pectoris; F01.50 Vascular dementia, unspecified severity, without behavioral disturbance, psychotic disturbance, mood disturbance, and anxiety; Z95.1 Presence of aortocoronary bypass graft; Z68.24 Body mass index [BMI] 24.0-24.9, adult
CPT/HCPCS: 0241U-QW; 36415; 71045-TC-FY; 76775-TC; 80053; 81003; 82550; 82553; 82570; 82607; 82728; 82746; 82803; 82962; 83540; 83550; 83605; 83615; 83735; 84100; 84156; 84300; 84484; 85025; 85045; 85610; 85730; 86850; 86900; 86901; 87040; 87086; 93005; 93010; 99285-25; J1644; J3490